=== PATIENT | male | born 2000 | race Caucasian/White ===

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

== ENCOUNTER 2022-11-14 16:15 | Emergency (ER) | payer BC ==
[~2022-11-14] VITALS: Ht 185.4 cm; Wt 78.4 kg
[~2022-11-14 16:15] MED LIST changes: +MAPA500C PO; +ONDA4TAB6 PO
[2022-11-14] MEDS ORDERED: FAMO20TA5 (16:27)
[2022-11-14] MEDS ORDERED: BUPR1TAB52 (16:27)
[2022-11-14] MEDS: AUGMENTIN 875 MG TAB PO ONE (18:09)
[2022-11-14] MEDS ORDERED: PANT-23 PO (18:53)
[2022-11-14] MEDS ORDERED: AMOX875T2 PO (18:53)
[2022-11-14] MEDS ORDERED: MIRA3350 PO (18:53)
[2022-11-14 18:57] VITALS: BP 132/75
== END 2022-11-14 19:15 | disposition home or self-care (01) ==
LOC: M ED 16:15
DX: F41.9 Anxiety disorder, unspecified (principal); K59.00 Constipation, unspecified; K21.9 Gastro-esophageal reflux disease without esophagitis; K04.7 Periapical abscess without sinus; F32.A Depression, unspecified; F17.290 Nicotine dependence, other tobacco product, uncomplicated

== ENCOUNTER → 2023-03-21 | Outpatient (CLI) | payer BC ==
[~2023-03-21] MED LIST changes: +AMOX875T2 PO; +BUPR1TAB52; +FAMO20TA5; +MIRA3350 PO; +PANT-23 PO
== END ==
LOC: M RAD 08:23
PROVIDERS: ATTEND Nurse Practitioner Family
DX: R10.811 Right upper quadrant abdominal tenderness (principal); R10.31 Right lower quadrant pain

== ENCOUNTER 2023-04-08 12:24 | Day surgery (SDC) | payer BC ==
[~2023-04-08] VITALS: Ht 182.9 cm; Wt 75.9 kg
[~2023-04-08 12:24] MED LIST changes: +NS 1,000 ML IV ONE
[2023-04-08] MEDS ORDERED: propofoL 200 MG/20 ML VIAL As Ordered ONE ×2 (13:16→13:33)
[2023-04-08] MEDS ORDERED: LIDOCAINE 2% 100MG/5ML SDV (FOR ANES.) As Ordered ONE (13:16)
[2023-04-08] MEDS ORDERED: fentaNYL 100 MCG/2 ML INJECTION As Ordered ONE (13:16)
[2023-04-08 13:38] VITALS: TEMP 97.6
[2023-04-08 14:20] VITALS: BP 118/73; O2SAT 96
== END 2023-04-08 14:36 | disposition home or self-care (01) ==
LOC: M OPP 12:24
PROVIDERS: ATTEND Internal Medicine Gastroenterology
DX: K22.89 Other specified disease of esophagus (principal); K31.89 Other diseases of stomach and duodenum; K29.70 Gastritis, unspecified, without bleeding; F17.290 Nicotine dependence, other tobacco product, uncomplicated; Z79.899 Other long term (current) drug therapy
CPT/HCPCS: 43239; 88305; J3010

== ENCOUNTER 2023-08-22 12:01 | Emergency (ER) | payer BC, SELFPAY ==
[~2023-08-22] VITALS: Ht 182.9 cm; Wt 79.5 kg
[~2023-08-22 12:01] MED LIST changes: -NS 1,000 ML IV ONE
[2023-08-22] MEDS ORDERED: KETOROLAC TROMETHAMINE 10 MG TAB PO ONE (14:10)
[2023-08-22] MEDS ORDERED: NS 1,000 ML IV ONE (15:00)
[2023-08-22 15:30] LABS: BASO % 0.5 % (0.0-1.0); HEMOGLOBIN 14.5 g/dl (13.5-17.5); LYMPH # 1.3 10^3/uL (1.5-5.0); LYMPH % 20.3 % (24.0-44.0); MEAN CORPUSCULAR HEMOGLOBIN 27.7 pg (27.0-33.0); MEAN CORPUSCULAR HGB CONC 33.7 g/dl (32.0-36.5); MEAN CORPUSCULAR VOLUME 82.1 fl (80.0-96.0); NEUTROPHILS # 4.1 10^3/uL (1.5-8.5); NEUTROPHILS % 63.9 % (36.0-66.0); PLATELET COUNT, AUTOMATED 305 10^3/uL (150-450); RED BLOOD COUNT 5.24 10^6/uL (4.30-6.10); WHITE BLOOD COUNT 6.4 10^3/uL (4.0-10.0)
[2023-08-22 15:47] LABS: ERYTHROCYTE SEDIMENTATION RATE 17 mm/hr (0-15)
[2023-08-22 15:59] LABS: ALBUMIN 4.3 G/DL (3.2-5.2); ALKALINE PHOSPHATASE 41 U/L (46-116); ALT/SGPT 23 U/L (7.0-40); AST/SGOT 20 U/L (<34); BILIRUBIN,DIRECT 0.1 MG/DL (<0.4); BILIRUBIN,TOTAL 0.3 MG/DL (0.3-1.2); BLOOD UREA NITROGEN 9 MG/DL (9-23); CALCIUM LEVEL 8.7 MG/DL (8.5-10.1); CARBON DIOXIDE LEVEL 28 MMOL/L (20-31); CHLORIDE LEVEL 99 MMOL/L (98-107); CREATININE FOR GFR 0.96 MG/DL (0.70-1.30); GLOMERULAR FILTRATION RATE > 60.0 (>60); GLUCOSE, FASTING 91 MG/DL (60-100); POTASSIUM SERUM 3.7 MMOL/L (3.5-5.1); SODIUM LEVEL 138 MMOL/L (136-145); TOTAL PROTEIN 7.9 G/DL (5.7-8.2)
[2023-08-22 16:03] LABS: RSV AMPLIFICATION NEGATIVE (NEGATIVE)
[2023-08-22 16:30] VITALS: BP 125/75; TEMP 98.6; O2SAT 99
== END 2023-08-22 16:35 | disposition home or self-care (01) ==
LOC: M ED 12:01
DX: U07.1 COVID-19 (principal); K21.9 Gastro-esophageal reflux disease without esophagitis; F41.9 Anxiety disorder, unspecified; F32.A Depression, unspecified; F17.200 Nicotine dependence, unspecified, uncomplicated; F12.10 Cannabis abuse, uncomplicated